=== PATIENT | male | born 1960 | race Caucasian/White ===

== ENCOUNTER → 2017-12-31 | Outpatient (CLI) | payer OTHER ==
[~2017-12-31] MED LIST: IOPAMIDOL (ISOVUE 370) 100 ML BTL IV ONE
== END ==
LOC: FIMAGING 15:18
PROVIDERS: ATTEND Internal Medicine Cardiovascular Disease
DX: Z03.89 Encounter for observation for other suspected diseases and conditions ruled out (principal)
CPT/HCPCS: Q9967

== ENCOUNTER → 2018-06-14 | Day surgery (SDC) | payer OTHER ==
[~2018-06-14] MED LIST changes: +ASPIRIN EC 325 MG TAB PO ONE; +DIAZEPAM 5 MG TAB PO ONE; +FAMOTIDINE 20 MG TAB PO ONE; +HEPARIN 10,000 UNIT/10 ML MDV (1,000 UNIT/ML) ONE; -IOPAMIDOL (ISOVUE 370) 100 ML BTL IV ONE; +IOPAMIDOL (ISOVUE-370) 150 ML BTL IV ONE; +LIDOCAINE 1% 300 MG/30 ML SDV ONE; +MIDAZOLAM 2 MG/2 ML VIAL ONE; +NS 1,000 ML IV ONE; +VERAPAMIL 5 MG/2 ML VIAL ONE; +diphenhydrAMINE 25 MG CAP PO ONE; +fentaNYL 100 MCG/2 ML INJ ONE
[2018-06-14 10:10] LABS: PLATELET COUNT 186 10^3/uL (150-400)
--- NOTE | 2018-06-14 10:13 | PDPROPOC ---
Sedation Plan of Care Sedation Plan of Care: vital signs stable, mental status noted, patient educated of risks, benefits, alternatives, patient can tolerate sedation ASA Classification: ASA 2 Planned drugs: fentanyl, midazolam Mallampati Score: Class 1 Mallampati Reference Image: Patient passed 3-3-2 rule?: Yes
--- NOTE | 2018-06-14 10:13 | PDHPUP ---
History & Physical Update H&P update statement: This history and physical update is based on an assessment of the patient which was completed after admission or registration (within 24 hours), but prior to the surgery/procedure. H&P update: H&P reviewed & patient examined, no change in patient's condition since H&P completed
[2018-06-14 10:16] LABS: INR 1.11 (0.83-1.16); PROTIME(PATIENT) 14.5 SEC (12.0-15.0)
--- NOTE | 2018-06-14 10:26 | PDGENHP ---
History & Physical Chief Complaint: Preoperative cardiac catheterization History of Present Illness: 58-year-old male history of bicuspid aortic valve with moderate to severe aortic insufficiency and a dilated aortic root here for coronary assessment prior to aortic valve replacement and aortic root replacement. Patient was last seen in the office on March 22. He has had no significant complaints other than more sedentary exercise over the last 2 years. Pertinent Past, Social, Family History: Ascending aortic aneurysm. Bicuspid aortic valve. BPH. Gout. Hypertension. Surgical history includes meniscectomy, nasal polyp removal, TURP Relevant Physical Exam: 110/70, heart rate 60, respiration 18,. Regular rate and rhythm with 2/6 diastolic blow. Chest is clear to auscultation percussion. Radial pulses +2 and equal negative Desmond's test. Femoral pulses +2 and equal. No peripheral edema. Abdomen soft nontender with good bowel sounds. Alert oriented x3 with normal mood and affect. Facial symmetry. Normal motor and sensory function grossly Cardiorespiratory Assessment: Preoperative assessment for aortic valve replacement, repair of thoracic aortic aneurysm. Cardiac catheterization from the right radial artery. No contraindications identified. Risks and benefits discussed will proceed.
--- NOTE | 2018-06-14 11:27 | PDDXCAT ---
Diagnostic Cath Note - . Date: 06/14/18 Laboratory Apparatus Glass Grinder: Edin Indication: other (Preoperative aortic valve replacement/thoracic aortic aneurysm repair) - Procedure Access: right wrist Procedure: left heart catheterization, coronary angiography, left ventriculogram , other (Aortogram) - Materials Left Heart Cath size: 6F Left Heart Cath materials: standard multipack (JL4, JR4, pigtail) - Findings-Left Heart Catheterization LM: Normal LAD: Moderate vessel. Normal LCX: Moderate vessel with principal obtuse marginal branch: Normal RCA: Large vessel: Normal: Dominant EDP: 15 mm of mercury LVEF: 55% Wall motion: Normal: 2+ aortic insufficiency with dilatation of the aortic root by aortography Complications: None Estimated blood loss: <50ml Closure method: TR Band Assessment: 2+ aortic insufficiency with aortic root dilatation. Angiographically normal coronary arteries. Normal LV systolic function with normal filling pressures
--- NOTE | 2018-06-15 13:13 | CPEKG ---
Test Reason : OPEN Blood Pressure : / mmHG Vent. Rate : 038 BPM Atrial Rate : 037 BPM P-R Int : 168 ms QRS Dur : 104 ms QT Int : 461 ms P-R-T Axes : 002 -36 -54 degrees QTc Int : 367 ms Sinus bradycardia Inferior infarct, age indeterminate Probable anterior infarct, age indeterminate Confirmed by Nahum Foster ([id number]) on 06/15/2018 1:13:04 PM Referred By: Confirmed By:Nahum Foster
== END | disposition home or self-care (01) ==
LOC: FCATH 09:25
PROVIDERS: ATTEND Internal Medicine Interventional Cardiology
PROC: 4A023N7 Measurement of Cardiac Sampling and Pressure, Left Heart, Percutaneous Approach (ICD-10-PCS; principal; 2018-06-14)
PROC: B2151ZZ Fluoroscopy of Left Heart using Low Osmolar Contrast (ICD-10-PCS; principal; 2018-06-14)
PROC: B2111ZZ Fluoroscopy of Multiple Coronary Arteries using Low Osmolar Contrast (ICD-10-PCS; principal; 2018-06-14)
DX: Z01.818 Encounter for other preprocedural examination (principal); I35.1 Nonrheumatic aortic (valve) insufficiency; I77.819 Aortic ectasia, unspecified site
CPT/HCPCS: 93005; 93458; C1769; J1644; J2250; J3010; Q9967

== ENCOUNTER → 2018-10-07 | Outpatient (CLI) | payer OTHER ==
--- NOTE | 2018-10-17 11:45 | ECHO ---
[email or web address] [address] [address] Main: [phone] Fax: Transthoracic Echocardiogram Name: LORI KENNEDY MR#: [id number] Study Date: 10/07/2018 Study Time: 01:48 PM Date of : 1960 Age: 58 year(s) Height: 182.9 cm (72 in.) Weight: 93.89 kg (207 lb.) BSA: 2.16 m2 Gender: Male Examination: Echo Indication: post-op avr/ao root Image Quality: Adequate Contrast: Requested by: Omar Farrell BP: / Heart Rate: Rhythm: Indication: post-op avr/ao root Procedure Staff Transformation Specialist: Denise Jones [facility] Reading Physician: Tino Muller MD Requesting Provider: Conclusions: Mildly reduced systolic LV function. EF is 44 %. There is paradoxic septal motion suggestive of bundle branch block, paced cardiac rhythm, or prior cardiac surgery. Mild mitral valve regurgitation is present. The prosthetic aortic valve is normal. Trivial to mild tricuspid valve regurgitation. Right ventricular systolic pressure measures 21mmHg. No echocardiographic evidence of hemodynamic compromise. There is a moderate sized loculated effusion around the anterior and lateral LV wall and trivial effusion noted around the RV free wall. . Measurements: Chambers Valvular Assessment AV/MV Valvular Assessment TV/PV Normal Normal Normal Name Value Range Name Value Range Name Value Range Ao Ashlyn (MM): 3.7 cm (2.2 cm-3.7 AV Vmax: 2.13 m/s (1 m/s-1.7 TR Vmax: 2.01 mm/s ( - ) cm) m/s) TR PGmax: 16 mmHg ( - ) IVSd (2D): 1.1 cm (0.6 cm-1.1 AV maxP mmHg ( - ) syst. PAP: 21 mmHg ( - ) cm) AV meanP mmHg ( - ) PV Vmax: 1.04 m/s (0.6 m/s-0.9 LVDd (2D): 6.3 cm (4.2 cm-5.9 AMINATA (VTI): 2.4 cm ( - ) m/s) cm) MV E Vmax: 0.59 m/s ( - ) PV PGmax: 4 mmHg ( - ) LVDs (2D): 4.9 cm (2.1 cm-4 MV A Vmax: 0.51 m/s ( - ) cm) MV E/A: 1.16 ( - ) LVPWd (2D): 1.0 cm (0.6 cm-1 cm) LVOTd 2.5 cm 2.5 cm mm LVEF (BP): 44 % (>=55 %) RVDd(2D): 4.6 cm (1.9 cm-3.8 cmmm) Patient: LORI KENNEDY Study Date: 10/07/2018 Page 1 of 2 01:48 PM Continued Measurements: Chambers Valvular Assessment AV/MV Valvular Assessment TV/PV Name Value Name Value Name Value LADs Lon.8 cm MV DecTime: 331 m/s CVP (est.): 5 mmHg LA Area: 22.2 cm2 MV E' Septal: 0.05 m/s LA Volume: 64 ml MV E/E' Septal: 11.20 LA Volume Index: 29.6 ml/m2 MV E/E' Lateral: 7.10 TAPSE: 1.1 cm RA Area: 27.0 cm2 Additional Vessels Name Value Ao Ascendin.6 cm Findings: Left Ventricle: Dilated left ventricle. Mild concentric LV hypertrophy. Mildly reduced systolic LV function. EF is 44 %. There is paradoxic septal motion suggestive of bundle branch block, paced cardiac rhythm, or prior cardiac surgery. Normal diastolic LV function. Right Ventricle: Mildly to moderately dilated right ventricle. Mildly reduced RV function. Left Atrium: The left atrium is normal in size. Right Atrium: The right atrium is mildly dilated. Mitral Valve: The mitral valve is normal in appearance and function. Mild mitral valve regurgitation is present. No mitral stenosis is present. Aortic Valve: The aortic valve is a bioprosthesis. The prosthetic aortic valve is normal. No prosthesis stenosis. No prosthesis regurgitation. Tricuspid Valve: The tricuspid valve is normal in appearance and function. Trivial to mild tricuspid valve regurgitation. Right ventricular systolic pressure measures 21mmHg. The pulmonary artery pressure is normal. Pulmonic Valve: Pulmonary valve not well visualized. Trivial pulmonic valve regurgitation. Aorta: Normal size aortic root measuring 3.7 cm. Normal size ascending aorta measuring 3.6 cm. IVC: The IVC is not well visualized. Pericardium: No echocardiographic evidence of hemodynamic compromise. There is a moderate sized loculated effusion around the anterior and lateral LV wall and trivial effusion noted around the RV free wall. . (No Signature Object) Patient: LORI KENNEDY Study Date: 10/07/2018 Page 2 of 2 01:48 PM [id number]
== END ==
LOC: FCP 13:33
PROVIDERS: ATTEND Internal Medicine Cardiovascular Disease
DX: I71.2 Thoracic aortic aneurysm, without rupture (principal); Q23.1 Congenital insufficiency of aortic valve

== ENCOUNTER → 2019-01-16 | Outpatient (CLI) | payer OTHER | LOC: FIMAGING 15:03 | PROVIDERS: ATTEND Internal Medicine Cardiovascular Disease | DX: R06.89 Other abnormalities of breathing (principal); R00.2 Palpitations; Z95.9 Presence of cardiac and vascular implant and graft, unspecified ==